=== PATIENT | female | born 1955 | race Caucasian/White ===

== ENCOUNTER 2021-07-26 09:04 | Outpatient (CLI) | payer MEDICARE, OTHER | END 2021-07-26 09:05 | disposition home or self-care (01) | LOC: CSHMRI 09:04 | PROVIDERS: ATTEND Neurological Surgery | DX: I67.1 Cerebral aneurysm, nonruptured (principal); M54.2 Cervicalgia | CPT/HCPCS: 70496; 72052; 72141; 82565 ==